=== PATIENT | female | born 1970 | race Caucasian/White ===

== ENCOUNTER 2016-11-21 12:43 | Outpatient (CLI) | payer BC | END 2016-11-21 23:00 | LOC: RT SRH 12:43 | DX: R05 Cough (principal) ==

== ENCOUNTER 2016-12-14 12:59 | Outpatient (CLI) | payer BC ==
--- NOTE | 2016-12-19 17:06 | DIAGNOSTIC IMAGING REPORT ---
PROCEDURE: US ECHOCARDIOGRAM INDICATION: . Dyspnea TECHNIQUE: Technically difficult study due to morbid obesity COMPARISON: None FINDINGS: Left ventricle normal in size with end diastolic dimension of 40 cm. Left ventricular ejection fraction is normal, and visually estimated at 60th 65%. There is grade 1 diastolic dysfunction. There is mild concentric left ventricular hypertrophy. Wall motion appears normal. The left ventricular outflow tract gradient is normal at rest. With Valsalva peak gradient was measured at 34 mmHg although the quality of the day was poor. There is no hypertrophy of the septum noted and no systolic anterior motion of the anterior mitral valve leaflet. The right ventricle grossly normal in size and function. Left atrium normal size. Right atrium normal size. Interatrial septum with possible atrial septal defect versus patent foramen ovale. However, only color Doppler was used for interrogation making it difficult to determine this with certainty. Aortic valve normal in structure and function. Mitral valve normal in structure and function. Tricuspid valve normal in structure and function. Pulmonic valve not well visualized. Aortic root and normal in size at 3.7 cm. The ascending aorta not well visualized. Pericardium appears normal without pericardial effusion. Minimally elevated pulmonary artery pressure at 33 mmHg. IMPRESSION: Normal left ventricular systolic function. Grade 1 diastolic dysfunction. Mild concentric left ventricular hypertrophy. Elevated left ventricular outflow tract gradient with Valsalva. Please see comments above. Valve is normal in structure and function. Possible atrial septal defect versus patent foraminal valley. Please see comments above. Minimally elevated pulmonary artery pressure at 33 mmHg.
== END 2016-12-14 23:00 ==
LOC: US SRH 12:59
DX: I51.7 Cardiomegaly (principal)